=== PATIENT | male | born 1995 | race Caucasian/White ===

== ENCOUNTER 2020-08-15 10:52 | Emergency (ER) | payer SELFPAY ==
[2020-08-15 11:00] VITALS: BP 120/84; PULSE 73; RESP 16; TEMP 36.5; O2SAT 100
--- NOTE | 2020-08-15 11:07 | ED.EYEPROB ---
HPI - Eye Problem General Chief complaint: Eye Problems Stated complaint: Right eye Pain Time Seen by Provider: 08/15/20 11:07 Source: patient Mode of arrival: ambulatory Limitations: no limitations History of Present Illness HPI Narrative: Cory Joseph is a 24 yo male with no PMH who comes to express care after being hit in face with branch at work yesterday, Has R eye photosensitivity, mild blurriness. Visual acuity L 20/25, R 20/70 Related Data Allergies Allergy/AdvReac Type Severity Reaction Status Date / Time No Known Allergies Allergy Verified 08/15/20 11:07 Review of Systems Review of Systems: Narrative: CONSTITUTIONAL: Denies fever, chills, sweats. EYES: Denies visual changes, redness, discharge. Eye pain and blurriness in the right eye post injury ENT: Denies rhinorrhea, congestion, sore throat, otalgia. CARDIOVASCULAR: Denies chest pain, palpitations, edema. RESPIRATORY: Denies dyspnea, wheezing, cough GASTROINTESTINAL: Denies abdominal pain, nausea, vomiting, diarrhea. GENITOURINARY: Denies dysuria, hematuria, abnormal discharge SKIN: Denies rash or itching. NEUROLOGIC: Denies numbness, or focal weakness. PSYCHIATRIC: Denies anxiety or depression. PMFSH Past Medical History Medical History No acute medical problems Family History Family History Other Hypertension Social History Social History Smoking packs per day: 0.33 Smoking cigarettes per day: 6.6 Smoking status: Current every day smoker Alcohol intake: former Gender identity (if verbalized by the patient): Male Comments At time of signature, I agree with nursing past medical, surgical, social and family history. There is no relevant family history pertinent to the presenting complaint. Exam Narrative: Exam Narrative: GENERAL: This is a well-nourished, well-developed patient, in mild distress. HEAD: normocephalic, atraumatic. EYES: PERRL. Sclera clear/white. Vision is grossly intact. Right eye vision is somewhat blurred and painful in sunlight EARS: External ears normal, auditory canals clear and without drainage, TMs normal without perforation. Hearing grossly intact. NOSE: External nose normal without nasal discharge, nares without redness, no rhinorrhea. THROAT: Mucous membranes moist, NECK: Neck supple, CARDIOVASCULAR: Regular rate and rhythm without murmurs, gallops, or rubs. RESPIRATORY: Clear to auscultation. Breath sounds equal bilaterally. No wheezes, rales, or rhonchi. GASTROINTESTINAL: Abdomen soft, SKIN: warm, intact with no suspicious lesions or rash, good texture and turgor. NEURO: awake, alert, and oriented to person, place and time. There were no obvious focal neurologic abnormalities. Steady gait EXTREMITIES: Normal range of motion. BACK: Nontender without deformity Course Course Emergency Course: Patient had branch pressure across his yesterday at work possible at the time but still feels like something is in eye Tetracaine placed in right eye for along with fluorescein stain there is uptake of dye at the right lower quadrant of eye just below the sclera, eye flushed Started on polymyxin Work excuse for today and tomorrow To wear sunglasses and not to wear any kind of eyewear and eye until pain is resolved Vital Signs Vital signs: Vital Signs Temperature 97.7 F 08/15/20 11:00 Pulse Rate 73 08/15/20 11:00 Respiratory Rate 16 08/15/20 11:00 Blood Pressure 120/84 08/15/20 11:00 Pulse Oximetry 100 08/15/20 11:00 Temperature 97.7 F 08/15/20 11:00 Pulse Rate 73 08/15/20 11:00 Respiratory Rate 16 08/15/20 11:00 Blood Pressure 120/84 08/15/20 11:00 Pulse Oximetry 100 08/15/20 11:00 MDM - Eye Problem Differential Diagnosis Differential diagnosis: Likely corneal abrasion, conjunctivitis, corneal ulcer and
== END 2020-08-15 11:30 | disposition home or self-care (01) ==
PROVIDERS: Emergency Provider Nurse Practitioner
DX: S05.01XA Injury of conjunctiva and corneal abrasion without foreign body, right eye, initial encounter (principal); W22.8XXA Striking against or struck by other objects, initial encounter
CPT/HCPCS: 99213; A9270; G0463

== ENCOUNTER 2021-02-07 12:35 | Emergency (ER) | payer SELFPAY ==
[2021-02-07 12:41] VITALS: BP 137/97; PULSE 108; RESP 20; TEMP 36.4; O2SAT 100
--- NOTE | 2021-02-07 13:28 | ED.GENADULT ---
HPI - General Adult General Chief complaint: Dental/Oral Stated complaint: toothache Time Seen by Provider: 02/07/21 12:37 Source: patient and RN notes reviewed Mode of arrival: ambulatory Limitations: no limitations History of Present Illness HPI narrative: Patient is a 25-year-old male who presents to emergency department for evaluation of left lower dental pain patient notes history of decay does not have acute follow-up with dental but does have appointment in the future patient denies any fever chills does note some nausea has not taken anything for his symptoms presents in no distress has had similar occurrences in the past Related Data Allergies Allergy/AdvReac Type Severity Reaction Status Date / Time No Known Allergies Allergy Verified 02/07/21 12:43 Review of Systems Review of Systems: All systems reviewed & are unremarkable except as noted in HPI and below PMFSH Past Medical History Medical History No acute medical problems Family History Family History Other Hypertension Social History Social History Smoking packs per day: 0.33 Smoking cigarettes per day: 6.6 Smoking status: Current every day smoker Alcohol intake: former Gender identity (if verbalized by the patient): Male Exam Narrative: Exam Narrative: GENERAL: Well-appearing, well-nourished, and in no acute distress. HEAD: Normocephalic, atraumatic. EYES: PERRLA and EOMI. ENT: Nares clear, no rhinorrhea or epistaxis. Mucous membranes moist. Pain to the left lower jawline where there is gross dental decay no space-occupying lesions uvula midline no trismus or drooling NECK: Supple. No adenopathy or masses. CHEST: Clear to auscultation. No respiratory distress. No wheezes rales or rhonchi HEART: Regular rate and rhythm. No murmur heard. EXTREMITIES: Normal range of motion. No edema. SKIN: Warm, dry, no rash. NEURO: No focal deficits. Alert and oriented x3. PSYCH: Normal mood and affect. Course Course Emergency Course: Patient in the room no distress aware of case findings treatment plan and diagnosis agreeing to follow-up as instructed or to return if symptoms worsen or concerns Vital Signs Vital signs: Vital Signs Temperature 97.5 F L 02/07/21 12:41 Pulse Rate 108 H 02/07/21 12:41 Respiratory Rate 20 02/07/21 12:41 Blood Pressure 137/97 H 02/07/21 12:41 Pulse Oximetry 100 02/07/21 12:41 Temperature 97.5 F L 02/07/21 12:41 Pulse Rate 108 H 02/07/21 12:41 Respiratory Rate 20 02/07/21 12:41 Blood Pressure 137/97 H 02/07/21 12:41 Pulse Oximetry 100 02/07/21 12:41 Medical Decision Making MDM Narrative Medical decision making narrative: Paitents pain and complaint coupled with physical findings are consistant with dentalgia. There are no focal signs of space occupying lesions that are compromising to the ariway. The floor of the mouth is soft with no signs of Ludwigs Angina. Patient is without trismus or drooling and able to swallow secreations. Patient is felt appropriate for discharge home with dental follow up. Vital Signs Vital Signs: Vital Signs Temperature 97.5 F L 02/07/21 12:41 Pulse Rate 108 H 02/07/21 12:41 Respiratory Rate 20 02/07/21 12:41 Blood Pressure 137/97 H 02/07/21 12:41 Pulse Oximetry 100 02/07/21 12:41 Temperature 97.5 F L 02/07/21 12:41 Pulse Rate 108 H 02/07/21 12:41 Respiratory Rate 02/07/21 12:41 Blood Pressure 137/97 H 02/07/21 12:41 Pulse Oximetry 100 02/07/21 12:41 Discharge Plan Discharge Clinical Impression: Dental abscess Patient Disposition: Home, Self-Care Condition: Stable Instructions: Antibiotic Form, Dental Abscess (ED) Additional Instructions: Follow-up with dentistry as planned Return if symptoms worsen or concerns or any increase in r
== END 2021-02-07 13:57 | disposition home or self-care (01) ==
PROVIDERS: Emergency Provider Emergency Medicine
DX: K04.7 Periapical abscess without sinus (principal); F17.210 Nicotine dependence, cigarettes, uncomplicated
CPT/HCPCS: 99283

== ENCOUNTER 2022-05-12 10:39 | Emergency (ER) | payer OTHER, SELFPAY ==
--- NOTE | ~2022-05-12 | XR_ITS ---
EXAMINATION: 1. XR hand RT min 3V 2. XR wrist RT min 3V DATE: 05/12/2022 11:19 INDICATION: Right hand injury and swelling. TECHNIQUE: 3 views of right hand and 4 views of right wrist were obtained. COMPARISON: None. FINDINGS: RIGHT WRIST: There is a comminuted extra-articular fracture of proximal fifth metacarpal. The main di stal fracture fragment demonstrates 29 degrees palmar angulation. Joint spaces are normal. RIGHT HAND: Again seen is a fracture of fifth metacarpal. Joint spaces are normal. IMPRESSION: 1. Comminuted extra-articular fracture of fifth metacarpal. Reviewed, dictated and finalized at location A. IMPRESSION: 1. Comminuted extra-articular fracture of fifth metacarpal.
--- NOTE | ~2022-05-12 | XR_ITS ---
EXAM: XR hand RT min 3V DATE: 05/12/2022 15:33 HISTORY: reduced with splint; post reduction Rt hand . COMPARISON: Same date at 11:12 AM. FINDINGS: Interval application of cast material which obscures osseous detail. Unchanged alignment o f the anteriorly angulated, comminuted proximal right fifth metacarpal fracture. IMPRESSION: Unchanged alignment of the proximal right fifth metacarpal fracture. Reviewed, dictated and finalized at location K. IMPRESSION: Unchanged alignment of the proximal right fifth metacarpal fracture .
[2022-05-12] MEDS: IBUPROFEN 600 MG TABLET (11:49)
--- NOTE | 2022-05-12 12:02 | ED.GENADULT ---
HPI - General Adult General Chief complaint: Extremity Injury, Upper Stated complaint: R. wrist injury Time Seen by Provider: 05/12/22 11:49 Source: patient Mode of arrival: ambulatory Limitations: no limitations History of Present Illness HPI narrative: Patient is a 26-year-old male who presents the ED with report of right hand pain. Patient reports he punched his solid wood closet door last night because he was upset. He complains of pain and swelling to his R dorsal hand. Denies any numbness/tingling. Patient tearful and does report a long history of depression. He states he has been depressed for 10 to 15 years and has had intermittent suicidal thoughts. He does not have any plan or intent to act on this at this time. Denies any HI or AVH. Patient has never seen a counselor, therapist, psychiatrist, or ever been on medication for his depression. He would like to speak to the crisis workers. Related Data Allergies Allergy/AdvReac Type Severity Reaction Status Date / Time No Known Allergies Allergy Verified 02/07/21 12:43 Review of Systems Review of Systems: CONSTITUTIONAL: Denies fever, chills, or sweats. SKIN: Reports swelling to R hand. MUSCULOSKELETAL: Reports R hand pain. NEUROLOGIC: Denies tingling, numbness, or weakness. PSYCHIATRIC: Reports depression, SI. Denies HI, AVH. All systems reviewed & are unremarkable except as noted in HPI and below PMFSH Past Medical History Medical History No pertinent past medical history Surgical History Surgical History (Updated 05/12/22 @ 12:07 by Tasia Briceño PA-C) No pertinent past surgical history Family History Family History Other Hypertension Social History Social History Smoking packs per day: 0.33 Smoking cigarettes per day: 6.6 Smoking status: Current every day smoker Alcohol intake: former Substance use type: marijuana Gender identity (if verbalized by the patient): Male Exam Narrative: GENERAL: Well appearing, thin, non-toxic, in no acute distress. HEAD: Normocephalic, atraumatic. NECK: Supple. No adenopathy, no masses. RESPIRATORY: Airway patent, respirations nonlabored. Clear to auscultation bilaterally, no rales, rhonchi, wheezing. CARDIOVASCULAR: Regular rate and rhythm without murmurs, rubs, or gallops. Radial pulses 2+ and equal bilaterally. MUSCULOSKELETAL: Moves all extremities. Minor limitations in full flexion ROM of right fingers due to swelling. Diffuse swelling to dorsal right hand, most severe over area of fourth and fifth metacarpal proximally. Tenderness to palpation along fifth metatarsal. No tenderness along proximal carpal bones, anatomical snuffbox, distal ulna or radius. SKIN: Warm, dry, normal color. No rashes. NEURO: A&O X3. Speech clear. Cranial nerves II-XII grossly intact. Steady gait. No ataxic movements. PSYCHIATRIC: Appropriate mood and affect. Normal interaction. Course Vital Signs Vital signs: Vital Signs Pulse Rate 86 05/12/22 15:00 Respiratory Rate 16 05/12/22 15:00 Blood Pressure 139/74 05/12/22 15:00 Pulse Oximetry 99 05/12/22 15:00 Pulse Rate 86 05/12/22 15:00 Respiratory Rate 16 05/12/22 15:00 Blood Pressure 139/74 05/12/22 15:00 Pulse Oximetry 99 05/12/22 15:00 Medical Decision Making MDM Narrative Medical decision making narrative: Patient presented to ED with right hand injury after punching closet door. X-rays showing comminuted fracture of proximal fifth metacarpal. Ulnar gutter splint placed in the ED. I did attempt to reduce fracture as splint was placed. Repeat XR does not show much change in angulation however. Patient will be provided with orthopedic follow-up information. Naproxen and [place] sent to pharmacy for pain management. Patient became very tearful on my ev
[2022-05-12 12:27] LABS: Basophils Percent Auto 0.3 % (0.2-1.2); Eosinophils Absolute Auto 0.1 K/mm3 (0-0.3); Eosinophils Percent Auto 1.4 % (0-4.4); Hematocrit 45.8 % (42.0-52.0); Hemoglobin 15.3 g/dL (14.0-18.0); Lymphocytes Absolute Auto 1.41 K/mm3 (0.9-3.2); Lymphocytes Percent Auto 22.5 % (18.3-44.2); Mean Corpuscular HGB Conc 33.4 g/dl (32-36); Mean Corpuscular Hemoglobin 30.9 pg (26-34); Mean Corpuscular Volume 92.5 fl (80-100); Mean Platelet Volume 10.1 fl (7.4-10.4); Monocytes Absolute Auto 0.4 K/mm3 (0.1-0.6); Monocytes Percent Auto 6.1 % (2.6-8.5); Neutrophils Absolute Auto 4.4 K/mm3 (1.3-6.7); Neutrophils Percent Auto 69.7 % (45.5-73.1); Platelet Count Result 191 k/mm3 (150-375); Red Blood Count 4.95 M/mm3 (4.6-6.20); Red Cell Distribution Width 12.5 % (11.5-14.5); White Blood Count 6.3 K/mm3 (4.5-10.0)
[2022-05-12 12:29] LABS: Appearance Urine Clear (Clear); Bilirubin Urine Negative (Negative); Blood Urine Negative (Negative); Color Urine Yellow (Yellow); Glucose Urine UA Negative (Negative); Ketones Urine Negative (Negative); Leukocyte Esterase Ur Negative LEU/UL (Negative); Nitrate Urine Negative (Negative); Protein Urine Negative (Negative); Specific Grav Ur 1.025 (1.001-1.035); Urobilinogen Urine 0.2 mg/dL (<2.0); pH Urine 5.5 (5.0-9.0)
[2022-05-12 12:38] LABS: Alanine Aminotransferase 15 U/L (6-50); Albumin Level 4.9 g/dL (3.5-5.1); Alkaline Phosphatase 85 U/L (38-126); Anion Gap 13 mmol/L (8-16); Aspartate Amino Transferase 21 U/L (17-59); Bilirubin,Total 0.5 mg/dL (0.2-1.3); Blood Urea Nitrogen 10 mg/dL (9-20); Calcium 9.2 mg/dL (8.4-10.2); Carbon Dioxide 30 mmol/L (22-30); Chloride 101 mmol/L (98-107); Estimated CRCL calculation 68 ml/min; Estimated Glomerular Filt Rate > 60; Glucose 101 mg/dL (65-110); Potassium 4.2 mmol/L (3.4-5.0); Sodium 144 mmol/L (137-145)
[2022-05-12 12:39] LABS: Acetaminophen < 10 ug/mL (10-30); Ethanol < 10 mg/dL (<10); Salicylate < 1.0 mg/dL (2-20)
[2022-05-12 12:42] LABS: Amphetamine Screen Urine Negative (Negative); Barbiturate Screen Urine Negative (Negative); Benzodiazepines Screen Urine Negative (Negative); Cannabinoid Screen Urine Positive (Negative); Cocaine Screen Urine Negative (Negative); Methadone Screen Urine Negative (Negative); Opiate Screen Urine Negative (Negative); Phencyclidine Screen Urine Negative (Negative)
[2022-05-12 13:05] LABS: SARS-CoV-2 RNA PCR Negative
[2022-05-12 13:29] LABS: Add Urine Microscopic? NO
[2022-05-12 15:00] VITALS: BP 139/74; PULSE 86; RESP 16; O2SAT 99
== END 2022-05-12 15:47 | disposition home or self-care (01) ==
PROVIDERS: Physician Assistant; Emergency Provider Emergency Medicine
DX: S62.316A Displaced fracture of base of fifth metacarpal bone, right hand, initial encounter for closed fracture (principal); F32.A Depression, unspecified; R45.851 Suicidal ideations; Z20.822 Contact with and (suspected) exposure to COVID-19; W22.8XXA Striking against or struck by other objects, initial encounter
CPT/HCPCS: 26605; 36415; 73110; 73130; 80053; 80307; 81003; 84443; 85025; 99284; 99285; A9270; C9803; U0003; U0005

== ENCOUNTER 2025-07-21 18:44 | Emergency (ER) | payer BC, SELFPAY ==
--- NOTE | ~2025-07-21 | XR_ITS ---
EXAMINATION: XR chest 1V portable DATE: 07/21/2025 19:14 INDICATION: Shortness of breath. TECHNIQUE: A single frontal view of the chest was obtained. COMPARISON: None. FINDINGS: Heart size is normal. Lungs are clear of acute processes. Likely benign granuloma in the left upper lobe 8 mm in diameter. IMPRESSION: 1. No acute findings in the chest. Reviewed, dictated and finalized at location T. ENT DESIGNER
[2025-07-21 18:32] VITALS: BP 150/92; PULSE 105; RESP 17; TEMP 36.8; O2SAT 100
[2025-07-21 18:40] VITALS: BP 150/92; PULSE 105; RESP 17; O2SAT 100
--- NOTE | 2025-07-21 19:01 | ECG_ITS ---
Test Date: 2025-07-21 19:26:25 Measurements Intervals [place] Rate: 83 P: 67 WV: 153 QRS: -44 QRSD: 122 T: 38 QT: 370 QTc: 436 Interpretive Statements SINUS RHYTHM LEFT AXIS DEVIATION [QRS AXIS < -30] RIGHT BUNDLE BRANCH BLOCK [120+ ms QRS DURATION, UPRIGHT V1, 40+ ms S IN I/aVL/V4/V5/V6] ABNORMAL ECG No previous ECG available for comparison Electronically Signed On 07-22-2025 08:06:07 MOBILITY DEVELOPER by Reynaldo Hahn M.D.
--- NOTE | 2025-07-21 19:46 | ED_ITS ---
HPI - General Adult General Chief complaint: Unspecified Stated complaint: Rapid HR Time Seen by Provider: 07/21/25 18:52 History of Present Illness HPI narrative: Patient presenting here with palpitations, severe anxiety, and shortness of breath after he smoked marijuana from a dispensary. Since arrival here he feels much better. Symptoms completely resolved Related Data Allergies Allergy/AdvReac Type Severity Reaction Status Date / Time No Known Allergies Allergy Unverified 07/21/25 18:41 Review of Systems Review of Systems: All systems reviewed & are unremarkable except as noted in HPI and below PMFSH Past Medical History Medical History No pertinent past medical history Surgical History Surgical History (Updated 05/12/22 @ 12:07 by Tasia Briceño PA-C) No pertinent past surgical history Family History Family History Other Hypertension Social History Social History Smoking packs per day: 0.33 Smoking cigarettes per day: 6.6 Smoking status: Current every day smoker Alcohol intake: former Substance use type: marijuana Gender identity (if verbalized by the patient): Male Exam Narrative: EXAMINATION OF ORGAN SYSTEMS/BODY AREAS: Constitutional: Vital signs per nursing GENERAL: Slightly anxious HEAD: Normal with no signs of head trauma. EYES: EOMI, conjunctiva normal ENT: Hearing grossly intact LUNGS: Nonlabored breathing. Clear to auscultation bilaterally HEART: [Regular rate and rhythm] ABD: [Soft], [nontender to palpation] EXT: Normal range of motion SKIN: [No rashes or lesions.] NEURO: [Alert and oriented x 3. No gross focal sensory or strength deficits.] PSYCH: Slightly anxious affect Course Vital Signs Vital signs: Vital Signs Temperature 98.2 F 07/21/25 18:32 Pulse Rate 105 H 07/21/25 18:32 Respiratory Rate 17 07/21/25 18:32 Blood Pressure 150/92 H 07/21/25 18:32 Pulse Oximetry 100 07/21/25 18:32 Oxygen Delivery Room Air 07/21/25 18:32 Temperature 98.2 F 07/21/25 18:32 Pulse Rate 81 07/21/25 20:01 Respiratory Rate 15 07/21/25 20:01 Blood Pressure 122/82 07/21/25 20:01 Pulse Oximetry 100 07/21/25 20:01 Oxygen Delivery Room Air 07/21/25 18:32 Medical Decision Making MDM Narrative Medical decision making narrative: Patient presenting here with symptoms consistent with panic attack []. On exam patient is was initially very tachycardic hyperventilating and very anxious, though he has calmed down quite a bit, he is now resting comfortably, states that his symptoms are completely resolved. I will obtain EKG and chest xray to rule out arrhythmia/ischemia, pneumothorax, or other cause of chest discomfort/shortness of breath. Chest x-ray on my independent interpretation does not show any acute abnormality, no pneumothorax or consolidation. EKG - 12-Lead: Performed at 1926. Interpreted by me. [Sinus rhythm]. Rate 83. Left axis. MA-interval [normal]. QRS duration [normal]. QTc [normal]. [No ST segment elevation or depression]. [T-wave normal]. Impression: No EKG evidence of acute ischemia or dysrhythmia. On reevaluation patient is feeling better, resting comfortably, vital signs now stable. I do feel patient is stable for discharge home at this time with followup to their doctor, and return here if symptoms return or worsen. Agreeable to outpatient management. Vital Signs Vital Signs: Vital Signs Temperature 98.2 F 07/21/25 18:32 Pulse Rate 105 H 07/21/25 18:32 Respiratory Rate 17 07/21/25 18:32 Blood Pressure 150/92 H 07/21/25 18:32 Pulse Oximetry 100 07/21/25 18:32 Oxygen Delivery Room Air 07/21/25 18:32 Temperature 98.2 F 07/21/25 18:32 Pulse Rate 81 07/21/25 20:01 Respiratory Rate 15 07/21/25 20:01 Blood Pressure 122/82 07/21/25 20:01 Pulse Oximetry 100 07/21/25 20:01 Oxygen Delivery Room Air 07/21/25 18:32 Discharge Plan Discharge Clinical Impression: Panic attack Patient Disposition: Home Condition: Stable Instructions: Panic Attack (ED) Additional Instructions: Your chest x-ray and EKG today looks normal. Please stop smoking. You can always return to the emergency room for any further issues. Patient Language: Kyrgyz Prescriptions: No Action hydrocodone-acetaminophen 5-325 mg tablet 1 tablet PO Q6H PRN (Reason: pain) Qty: 7 0RF naproxen 500 mg tablet 500 mg PO BID PRN (Reason: pain) Qty: 20 0RF Follow-up/Referrals: PHYSICIAN,WASH HOUSE SUPERVISOR [Primary Care Provider, Internal Medicine]
[2025-07-21 20:01] VITALS: BP 122/82; PULSE 81; RESP 15; O2SAT 100
== END 2025-07-21 20:09 | disposition home or self-care (01) ==
PROVIDERS: Emergency Provider Emergency Medicine
DX: F41.0 Panic disorder [episodic paroxysmal anxiety] (principal); F17.210 Nicotine dependence, cigarettes, uncomplicated; I45.10 Unspecified right bundle-branch block
CPT/HCPCS: 71045; 93005; 99283